=== PATIENT | female | born 1935 ===

== ENCOUNTER 2021-10-07 09:03 | Emergency (ER) | payer OTHER ==
[~2021-10-07] VITALS: Ht 157.5 cm; Wt 74.8 kg
[2021-10-07] MEDS ORDERED: TOPROL XL25 M1 PO (09:15)
[2021-10-07] MEDS ORDERED: LASIX20 MG PO (09:15)
[2021-10-07] MEDS ORDERED: XOPENEX0.63 MG/3 IH (09:16)
[2021-10-07] MEDS ORDERED: NAMENDA10 MG PO (09:16)
[2021-10-07] MEDS ORDERED: LATANOPROST 0.7.5 ML OP (09:16)
[2021-10-07] MEDS ORDERED: VITAMIN C WIT1000 MG PO (09:17)
[2021-10-07] MEDS ORDERED: VITAMIN D325 GM (09:17)
== END 2021-10-07 12:00 | disposition home or self-care (01) ==
LOC: ER 09:03
DX: J32.9 Chronic sinusitis, unspecified (principal); I10 Essential (primary) hypertension; J45.909 Unspecified asthma, uncomplicated; Z20.822 Contact with and (suspected) exposure to COVID-19